=== PATIENT | female | born 2005 | race Caucasian/White ===

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

== ENCOUNTER 2025-06-10 15:00 | Emergency (ER) | payer MEDICAID ==
[~2025-06-10] VITALS: Ht 162.6 cm; Wt 77.6 kg
[2025-06-10 15:21] VITALS: BP 124/98; PULSE 78; RESP 18; TEMP 97.3; O2SAT 100
[2025-06-10] MEDS ORDERED: PRED20TA PO (15:42)
--- NOTE | 2025-06-10 15:45 | Physician Documentation ---
History of Present Illness ~ Chief Complaint: See Chief Complaint Stated Complaint: POISON OAK Time Seen by MD: 15:37 OK to notify your PCP?: Yes Source: patient Mode of Arrival: POV Exam Limitations: no limitations HPI Presents with diffuse rash from poison oak. She reports that yesterday she woke up and it was on her right wrist. She sits it the night before that she was exposed to it but did not realize it. She has been using calamine lotion. Throughout yesterday and into today the rash is now spread to her chest, face, neck and middle back. She reports that she has had poison oak in the past and this is a similar reaction. Denies any airway compromise, shortness of breath or throat tightening. Medication Reconciliation Allergies: Coded Allergies: No Known Allergies (Unverified , 06/10/25) Scheduled Prednisone* (Prednisone*), 2 TAB PO DAILY Review of Systems All Other Systems at this time: Reviewed and Negative Physical Exam Vital Signs: RN Vital Signs have been reviewed: Yes, Temperature: 97.3, Source: Oral, Heart Rate: 78, Respiratory Rate: 18, BP: 124/98, Pulse Oximetry: 100, Weight: 77.600 Oxygen Flow Rate: 0 Pulse Oximetry Reflects: adequate oxygenation Physical Exam General: Alert, no distress. HEENT: No injection, moist mucous membranes. Neck: Full range of motion. Respiratory: No respiratory distress, equal chest rise and fall. Lungs clear bilaterally. Chest: No accessory muscle use. Cardiovascular: Regular rate and rhythm. Gastrointestinal: Nondistended. Extremities: Normal range of motion, no deformity. Neurologic: Oriented x4. Psychiatric: Normal mood and affect. Skin: Diffuse erythematous macular papular rash to right wrist and forearm, bilateral cheeks and nose, bilateral neck and right middle back. No blistering seen, no drainage. 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 We discussed the differences between a steroid injection and a prednisone Dosepak. Due to the diffuse nature of the rash, using shared decision-making it with the patient she chose to do the prednisone Dosepak. We discussed signs and symptoms to watch out for in case there is a secondary infection that developed due to the itching. We discussed home care instructions as well as follow up instructions. First dose of prednisone given here rest sent to the pharmacy. Differential Dx:Considerations: Include: Candidiasis, Erysipelas, Herpes zoster, Herpes simplex, Impetigo, Intertrigo, Molluscum contagiosum, Psoriaisis, Scabies, Varicella, Viral exanthema Additional Comment TENS/Marques Chuck syndrome Departure Disposition: HOME / SELF CARE / HOMELESS Impression: Primary Impression: Poison oak dermatitis Condition: Stable Discharge Instructions: Poison [place] Dermatitis, [id number] Additional Instructions: Resist urge to itch your rash. This can cause a secondary bacterial infection that would require an antibiotic. Avoid hot showers. You continued continue to use calamine lotion or [id number] hydrocortisone cream to help with symptoms. Follow up with her primary care provider within the next week if th ere is no improvement. Return back here for any new or worsening symptoms. Referrals: NO PRIMARY CARE PROVIDER (PCP) Prescriptions Prednisone* (Prednisone*) 20 Mg Tablet 2 TAB PO DAILY, #18 TAB Day 1-5: 2 tablets once daily by mouth for 5 days Day 6-10: 1 tablet once daily by mouth for 5 days Day 11-15: 0.5 tablet once daily by mouth for 5 days Prov: SONYA ULLOA 06/10/25 Education Educated: Patient Educated regarding: diagnosis, treatment, prognosis, need for follow up Additional Comment Medical Screen Exam This patient recieved a medical screening examination. After reviewing the individual's medical complaints with presenting symptoms and performing an appropriate physical examination, it was determined that no immediate life-thr eatening emergency medical condition is present. This individual is also not a women having contractions. Signature Scribe Signature: . Attestation: Scribed for Sonya Ulloap by Sonya Moreau NP . 06/10/25 15:43 Parts of this note were created using [email or web address] voice recognition software program. While efforts were made to correct any mistakes made by this voice recognition software program, nonsensical phrases may remain in this note. In addition, there may be errors and syntax, grammar, content and spelling. SONYA ULLOA [facility] Jun 10, 2025 15:45
== END 2025-06-10 15:59 | disposition home or self-care (01) ==
LOC: ER 15:00
DX: L23.7 Allergic contact dermatitis due to plants, except food (principal)
CPT/HCPCS: 99283; J7512